=== PATIENT | male | born 1955 | race Caucasian/White ===

== ENCOUNTER 2018-10-06 13:07 | Outpatient (CLI) | payer OTHER ==
[2018-10-06 14:43] LABS: #Basophils 0.1 thou/uL (0.0-0.2); #Eosinphils 0.6 thou/uL (0.0-0.7); #Lymphocytes 1.6 thou/uL (1.20-3.40); #Monocytes 0.5 thou/uL (0.11-0.59); #Neutrophils 3.7 thou/uL (1.40-6.50); %Basophils 2.1 % (0.0-1.0); %Eosinophils 9.3 % (0.0-10.0); %Lymphocytes 24.2 % (21.0-51.0); %Monocytes 7.3 % (0.0-10.0); %Neutrophils 57.1 % (42.0-75.0); Hemoglobin 14.2 g/dL (14.0-18.0); Mean Corpuscular HGB CONC 34.3 g/dL (32.0-36.0); Mean Corpuscular Hemoglobin 31.4 pg (27.0-31.0); Mean Corpuscular Volume 91.6 fL (78.0-98.0); Mean Platelet Volume 8.5 fL (7.4-10.4); Platelet Count 252 thou/uL (130-400); RBC Distribution Width 11.8 % (11.5-14.5); Red Blood Cell (RBC) Count 4.52 mill/uL (4.70-6.10); White Blood Cell (WBC) Count 6.4 thou/uL (4.8-10.8)
[2018-10-06 14:46] LABS: Bacteria/HPF None Seen HPF (None Seen); Bilirubin Negative (Negative); Blood, Urine Negative (Negative); Clarity Clear (Clear); Glucose, Urine (Dipstick) Normal (Negative); Leukocyte Negative Leu/uL (Negative); Nitrite Negative (Negative); Protein, Urine (Dipstick) Negative (Neg-Trace); RBC/HPF 0-3 HPF (0-3); Squamous Epithelial None Seen HPF (0-3); Urobilinogen Normal mg/dL (Less than 2); WBC/HPF 0-3 HPF (0-3)
[2018-10-06 14:51] LABS: Prothrombin Time 12.7 SEC (12.0-14.7)
[2018-10-06 15:07] LABS: Anion Gap 13 mmol/L (10-20); BUN (Urea Nitrogen) 18 mg/dL (8.4-25.7); Calc. Creatinine Clearance 0 mL/min (70-130); Calcium 9.6 mg/dL (7.8-10.44); Carbon Dioxide 25 mmol/L (23-31); Chloride 104 mmol/L (98-107); Estimated GFR-MDRD 69; Glucose 86 mg/dL (80-115); Potassium 4.5 mmol/L (3.5-5.1); Sodium 137 mmol/L (136-145)
== END 2018-10-06 13:08 | disposition home or self-care (01) ==
LOC: LABBT 13:07
PROVIDERS: ATTEND Orthopaedic Surgery
DX: Z01.818 Encounter for other preprocedural examination (principal); M16.11 Unilateral primary osteoarthritis, right hip
CPT/HCPCS: 80048; 81001; 85025; 85610; 87081; 93005; 93010

== ENCOUNTER 2018-10-06 13:15 | Inpatient (IN) | payer OTHER ==
[2018-10-06 13:22] VITALS: BMI 34.9
[2018-10-18] MEDS ORDERED: Sodium Chloride 0.9% 100 ML ONE (09:37)
[2018-10-18] MEDS ORDERED: Tranexamic Acid 1,000 MG/10 ML VIAL ONE (09:37)
[2018-10-18] MEDS ORDERED: Vancomycin HCl 1.5 GM in Sodium Chloride 0.9% 250 ML 300 ML IVPB SCH (10:00)
[2018-10-18] MEDS ORDERED: HYDROcodone/Acetaminophen 10/325 mg Tablet PO PRN (10:34)
[2018-10-18] MEDS ORDERED: Ondansetron PF 4 MG/2 ML Vial IVP PRN ×2 (10:34→11:45)
[2018-10-18] MEDS ORDERED: diphenhydrAMINE 25 MG CAP PO PRN (10:34)
[2018-10-18] MEDS ORDERED: Acetaminophen 325 MG TAB PO PRN (10:34)
[2018-10-18] MEDS ORDERED: Zolpidem Tartrate 5 MG TAB PO PRN ×2 (10:34→11:45)
[2018-10-18] MEDS ORDERED: Promethazine HCl 25 MG/ML VIAL IM PRN ×2 (10:34→11:45)
[2018-10-18] MEDS ORDERED: Fentanyl 100 MCG/2 ML VIAL ONE ×3 (10:46→15:28)
[2018-10-18] MEDS ORDERED: Midazolam HCl 2 mg/2 ml Vial ONE (10:46)
[2018-10-18] MEDS ORDERED: Acetaminophen 500 MG TAB PO PRN (11:38)
[2018-10-18] MEDS ORDERED: diphenhydrAMINE 50 MG/ML VIAL IVP PRN (11:45)
[2018-10-18] MEDS ORDERED: Naloxone HCl 0.4 mg/ml Vial IVP PRN (11:45)
[2018-10-18] MEDS ORDERED: Naloxone HCl 0.4 mg/ml Vial IV PRN (11:45)
[2018-10-18] MEDS ORDERED: diphenhydrAMINE 50 MG/ML VIAL IM PRN (11:45)
[2018-10-18] MEDS ORDERED: Bupivacaine 0.25% 10 ML VIAL EPIDURAL PRN (11:45)
[2018-10-18] MEDS ORDERED: Hydrocerin (Eucerin) Cream 120 gm Jar TOP PRN (11:45)
[2018-10-18] MEDS ORDERED: HYDROcodone/Acetaminophen 5/325 mg Tablet PO PRN (11:45)
[2018-10-18] MEDS ORDERED: traMADol HCl 50 MG TAB PO PRN (11:45)
[2018-10-18] MEDS ORDERED: Promethazine HCl 25 MG SUPP PR PRN (11:45)
[2018-10-18] MEDS ORDERED: Bupivacaine HCl 0.5%/Epinephrine 1:200,000/PF 30 ml Vial ONE (13:17)
[2018-10-18] MEDS ORDERED: Ketorolac Tromethamine 30 MG/ML VIAL IVP SCH ×2 (14:00→15:55)
[2018-10-18] MEDS ORDERED: Acetaminophen 1,000 MG in Premix Bag 1 BAG IVPB SCH (15:55)
[2018-10-18] MEDS ORDERED: Ketorolac Tromethamine 30 MG/ML VIAL ONE (15:55)
--- NOTE | 2018-10-18 16:38 | RAD ---
Radiograph right hip 2 views: DATE: 10/18/2018 HISTORY: 62-year-old male with right hip pain. COMPARISON: None FINDINGS: Metallic acetabular cup articulates with metallic femoral head prosthesis with stem that reaches prox imal diaphysis of femur. IMPRESSION: Status post total right hip joint replacement arthroplasty.
[2018-10-18] MEDS ORDERED: CEFAZOLIN 2 GM in Premix Bag 1 BAG IVPB SCH (17:00)
[2018-10-18] MEDS: HYDROcodone/Acetaminophen 10/325 mg Tablet PO PRN ×2 (17:14→20:57)
[2018-10-18] MEDS: Sodium Chloride 0.9% 1,000 ML IV SCH (17:19)
[2018-10-18] MEDS ORDERED: Ondansetron PF 4 MG/2 ML Vial ONE (17:37)
[2018-10-18] MEDS ORDERED: Glycopyrrolate 0.2 MG/ML 5 ML SYRINGE ONE (17:37)
[2018-10-18] MEDS ORDERED: Dexamethasone 20 MG/5 ML VIAL ONE (17:37)
[2018-10-18] MEDS ORDERED: PROPOFOL 200 MG/20 ML VIAL ONE (17:37)
[2018-10-18] MEDS ORDERED: Rocuronium Bromide 10 MG/ML (10ML VIAL) ONE (17:37)
[2018-10-18] MEDS ORDERED: Lidocaine 1% PF 5 ML VIAL ONE (17:37)
[2018-10-18] MEDS ORDERED: ePHEDrine 50 MG/ML VIAL ONE (17:37)
[2018-10-18] MEDS: traMADol HCl 50 MG TAB PO PRN (18:35)
[2018-10-18] MEDS ORDERED: Nystatin Powder 15 GM BOT TOP PRN (19:47)
[2018-10-18] MEDS ORDERED: Polyethylene Glycol 3350 17 GM Packet PO PRN (19:47)
--- NOTE | 2018-10-18 19:49 | PDOC.HOSPP ---
- Subjective Encounter Date: 10/18/18 Encounter Time: 19:48 Subjective: Patient seen and examined for med mngt. Pain controlled. No CP/SOB or palpitations. No new complaints. - Objective Vital Signs & Weight: Vital Signs (12 hours) Temp Pulse Resp BP Pulse Ox 10/18/18 19:33 98.0 F 61 16 132/80 99 10/18/18 16:50 97.5 F L 49 L 18 139/83 100 Weight Weight 237 lb I&O: 10/17/18 10/18/18 10/19/18 06:59 06:59 06:59 Intake Total 1260 Output Total 450 Balance 810 Additional Labs: Laboratory Tests 10/06/18 10/06/18 13:54 13:54 Hgb 14.2 Sodium 137 BUN 18 Creatinine 1.08 Estimated GFR (MDRD) 69 EKG Reviewed by me: Yes (SB) Hospitalist ROS - Review of Systems Cardiovascular: denies: chest pain, palpitations, orthopnea, paroxysmal noc. dyspnea, edema, light headedness, other Gastrointestinal: denies: nausea, vomitting, abdominal pain, diarrhea, constipation, melena, hematochezia, other - Medication Medications: Active Medications Generic Name Dose Route Start Last Admin Trade Name Freq PRN Reason Stop Dose Admin Hydrocodone Bitart/Acetaminophen 2 tab 10/18/18 10:34 10/18/18 17:14 Nixa 10/325 PO 2 tab Q4H PRN Administration Severe Pain (7-10) Sodium Chloride 1,000 mls @ 100 mls/hr 10/18/18 10:45 10/18/18 17:19 Normal Saline 0.9% IV 1,000 mls .Q10H WILIAN Administration Tramadol HCl 100 mg 10/18/18 11:45 10/18/18 18:35 Ultram PO 100 mg Q6H PRN Administration Moderate Pain 4-6 - Exam General Appearance: NAD Heart: RRR, no rubs Respiratory: CTAB, no rales Gastrointestinal: soft, non-tender, normal bowel sounds Extremities: no edema Neurological: no focal deficits Psychiatric: A&O x 3 Hosp A/P (1) HTN (hypertension) Code(s): I10 - ESSENTIAL (PRIMARY) HYPERTENSION Status: Chronic (2) BPH (benign prostatic hyperplasia) Code(s): N40.0 - BENIGN PROSTATIC HYPERPLASIA WITHOUT LOWER URINRY TRACT SYMP Status: Chronic (3) Obesity (BMI 30-39.9) Code(s): E66.9 - OBESITY, UNSPECIFIED Status: Chronic (4) CKD (chronic kidney disease) stage 2, GFR 60-89 ml/min Code(s): N18.2 - CHRONIC KIDNEY DISEASE, STAGE 2 (MILD) Status: Chronic (5) YUVAL (obstructive sleep apnea) Code(s): G47.33 - OBSTRUCTIVE SLEEP APNEA (ADULT) (PEDIATRIC) Status: Chronic - Plan PT/OT Cont to monitor Add PRN HTN meds Cont Terazosin Cont Home CPAP Resume Topamax after seen by PCP as outpt Cont other meds as above
[2018-10-18] MEDS ORDERED: hydrALAZINE 20 MG/ML VIAL SLOW IVP PRN (19:52)
[2018-10-18] MEDS: Ferrous Gluconate 324 MG TAB PO SCH (20:57)
[2018-10-18] MEDS: Aspirin 81 mg Enteric Coated Tablet PO SCH (20:57)
[2018-10-18] MEDS: CEFAZOLIN 2 GM in Premix Bag 1 BAG IVPB SCH (20:58)
[2018-10-18] MEDS: Terazosin HCl 5 MG CAP PO SCH (22:00)
[2018-10-19] MEDS: Ketorolac Tromethamine 30 MG/ML VIAL IVP SCH ×4 (00:30→23:55)
[2018-10-19] MEDS: traMADol HCl 50 MG TAB PO PRN (00:33)
[2018-10-19] MEDS: Sodium Chloride 0.9% 1,000 ML IV SCH ×3 (00:38→16:52)
[2018-10-19] MEDS: CEFAZOLIN 2 GM in Premix Bag 1 BAG IVPB SCH (04:53)
[2018-10-19 05:26] LABS: Hemoglobin 10.8 g/dL (14.0-18.0); Mean Corpuscular HGB CONC 35.7 g/dL (32.0-36.0); Mean Corpuscular Hemoglobin 32.9 pg (27.0-31.0); Mean Corpuscular Volume 92.3 fL (78.0-98.0); Mean Platelet Volume 8.7 fL (7.4-10.4); Platelet Count 214 thou/uL (130-400); RBC Distribution Width 11.5 % (11.5-14.5); Red Blood Cell (RBC) Count 3.27 mill/uL (4.70-6.10); White Blood Cell (WBC) Count 8.2 thou/uL (4.8-10.8)
[2018-10-19] MEDS: Fentanyl 5 mcg/Bup 0.075% Cadd 100 ML EPIDURAL SCH ×2 (06:36→23:06)
[2018-10-19] MEDS: Aspirin 81 mg Enteric Coated Tablet PO SCH ×2 (08:02→20:27)
[2018-10-19] MEDS: Senokot S 8.6-50 MG TAB PO SCH ×2 (08:02→20:31)
[2018-10-19] MEDS: Ferrous Gluconate 324 MG TAB PO SCH ×2 (08:02→20:27)
[2018-10-19] MEDS: Multivitamin W/ Minerals 1 TAB PO SCH (08:02)
[2018-10-19] MEDS: HYDROcodone/Acetaminophen 5/325 mg Tablet PO PRN ×3 (08:04→20:28)
--- NOTE | 2018-10-19 08:28 | OP ---
DATE OF PROCEDURE: 10/18/2018 PREOPERATIVE DIAGNOSES: Degenerative joint disease of right hip and intramuscular lipoma of right thigh. PROCEDURES PERFORMED: Right total hip arthroplasty and through a separate incision, removal of intramuscular lipoma 7 cm. HOOK PULLER: David Bergeron PA-C BLOOD LOSS: 300. SPECIMEN: None. DRAINS: None. COMPLICATIONS: None. IMPLANTS USED: Lyndsay Accolade II, size 3 stem with a +2.5 ceramic head and a 54 mm Tritanium cup. PROCEDURE IN DETAIL: After informed consent was obtained in the preoperative holding area, the patient was taken to the operative suite where general anesthesia was induced. The patient was then positioned in the lateral decubitus position. The hip was then prepped and draped in usual sterile fashion. The patient received preoperative antibiotics. Prior to incision, time-out was called and all members of the surgical team agreed upon site, surgeon, and patient. After this, a longitudinal incision was made directly over the trochanter, noted by palpation extending 2 fingerbreadths above and below the trochanter. The deeper subcutaneous layer was undermined with Bovie electrocautery. The iliotibial band was encountered and incised sharply and the plane below this was developed bluntly. A Charnley retractor was placed to hold this opened. The lateral aspect of the trochanter and the abductor muscles were encountered and then reflected anteriorly off the trochanter using Bovie electrocautery. Once this was completed, the anterior capsule was then encountered and identified and copious capsulotomy was carried out, exposing the femoral neck and head. Dislocation maneuver was then performed and an in situ provisional neck cut was then made using the oscillating saw. Attention was then turned to acetabular preparation and sequential reaming was carried out up to the appropriate diameter. A trial was then malleted into place with good firm resistance and no pullout. The permanent acetabular shell was then malleted squarely into place, as was the appropriate liner. Once completed, the wound was copiously irrigated and attention was then turned to femoral preparation. Flexion and external rotation were performed of the exposed thigh and femoral elevators were then placed at the proximal aspect of the wound. Canal finder was used to establish the length of the canal and sequential reaming was carried out, followed by broaching. Once the appropriate stability was established with the trial broaches with flexion, extension and rotational stability, we did trial with neutral and 2 mm offset incremental necks. Once the appropriate size was decided upon, with good stability noted with flexion, extension, internal and external rotation and shuck being negative, we removed the femoral trial broach and malleted into place the permanent prosthesis with good firm fit, which was also stable to rotation. Again, the hip felt very stable to flexion, extension, internal and external rotation. Leg lengths appeared near anatomic clinically and we were quite happy with prosthesis placement. Copious irrigation was then carried out through the entirety of the wound. Primary closure of the abductors was accomplished with interrupted #2 Vicryl [id number] stitches and the IT band was then closed with interrupted #2 Vicryl, oversewn with a #2 running barbed Quill stitch. Subcutaneous fascia was closed with running barbed Quill stitch and a subcuticular Monocryl barbed Quill stitch was used for skin closure and augmented with skin cement. A sterile dressing was applied. The procedure was terminated without any complication. All counts were correct. The patient was awakened in the operative suite and taken to the recovery room in stable condition. Through a separate incision, then made an anterior approach directly over the lipoma. The fascia was divided and muscles entered and enucleated 7 cm lipoma and obtained hemostasis in the deep aspect of the wound as needed. Irrigation was performed. The lipoma was sent for permanent specimen. Subcutaneous tissue was closed with 2-0 Vicryl, skin was closed with V-Loc. There were no complications. Job ID: [id number]
[2018-10-19] MEDS ORDERED: Terazosin HCl 5 MG CAP PO SCH (09:00)
[2018-10-19] MEDS: diphenhydrAMINE 25 MG CAP PO PRN ×3 (12:33→23:55)
[2018-10-19] MEDS: Terazosin HCl 5 MG CAP PO SCH (20:35)
[2018-10-20] MEDS: Sodium Chloride 0.9% 1,000 ML IV SCH ×2 (02:44→14:53)
[2018-10-20 05:03] LABS: Hemoglobin 10.8 g/dL (14.0-18.0); Mean Corpuscular Hemoglobin 33.2 pg (27.0-31.0); Mean Corpuscular Volume 92.3 fL (78.0-98.0); Mean Platelet Volume 8.9 fL (7.4-10.4); Platelet Count 191 thou/uL (130-400); RBC Distribution Width 11.8 % (11.5-14.5); Red Blood Cell (RBC) Count 3.25 mill/uL (4.70-6.10); White Blood Cell (WBC) Count 7.4 thou/uL (4.8-10.8)
[2018-10-20] MEDS: HYDROcodone/Acetaminophen 5/325 mg Tablet PO PRN (06:51)
[2018-10-20] MEDS: Senokot S 8.6-50 MG TAB PO SCH (09:05)
[2018-10-20] MEDS: Multivitamin W/ Minerals 1 TAB PO SCH (09:05)
[2018-10-20] MEDS: Ketorolac Tromethamine 30 MG/ML VIAL IVP SCH (09:05)
[2018-10-20] MEDS: Aspirin 81 mg Enteric Coated Tablet PO SCH (09:06)
[2018-10-20] MEDS: Ferrous Gluconate 324 MG TAB PO SCH (09:06)
[2018-10-20] MEDS ORDERED: HYDROcodone/Acetaminophen 10/325 mg Tablet PO PRN ×2 (09:55)
[2018-10-20 11:48] VITALS: BP 153/81; TEMP 98.1
== END 2018-10-20 15:19 | disposition home or self-care (01) | DRG 470 ==
LOC: SURG A 10-18 09:20 → SJJU 10-18 16:30
PROVIDERS: ADMIT Orthopaedic Surgery; ATTEND Orthopaedic Surgery
PROC: 0SR9039 Replacement of Right Hip Joint with Ceramic Synthetic Substitute, Cemented, Open Approach (ICD-10-PCS; principal; 2018-10-18)
DX: M16.11 Unilateral primary osteoarthritis, right hip (principal); D17.23 Benign lipomatous neoplasm of skin and subcutaneous tissue of right leg; N40.0 Benign prostatic hyperplasia without lower urinary tract symptoms; E66.9 Obesity, unspecified; I12.9 Hypertensive chronic kidney disease with stage 1 through stage 4 chronic kidney disease, or unspecified chronic kidney disease; N18.2 Chronic kidney disease, stage 2 (mild); G47.33 Obstructive sleep apnea (adult) (pediatric); G47.8 Other sleep disorders; Z68.35 Body mass index [BMI] 35.0-35.9, adult; Z90.49 Acquired absence of other specified parts of digestive tract; Z98.1 Arthrodesis status
CPT/HCPCS: 36415; 85027; 88304; J0131; J0670; J0690; J1100; J1885; J2001; J2250; J2405; J2704; J3010; J3370; J3490; J7050; Q0163

== ENCOUNTER 2023-03-18 11:36 | Outpatient (CLI) | payer MEDICARE, OTHER ==
[2023-03-18 13:09] LABS: #Basophils 0.1 10x3/uL (0.0-0.2); #Eosinphils 0.3 10x3/uL (0.0-0.5); #Monocytes 0.4 10x3/uL (0.0-1.1); #Neutrophils 2.7 10x3/uL (1.5-8.4); %Basophils 1.6 % (0.0-2.0); %Eosinophils 5.2 % (0.0-6.0); %Lymphocytes 30.4 % (18.0-47.0); %Monocytes 7.8 % (0.0-10.0); %Neutrophils 54.4 % (40.0-75.0); Hematocrit 40.9 % (38.8-50.0); Hemoglobin 14.8 g/dL (13.5-17.5); Mean Corpuscular HGB CONC 36.2 g/dL (32.0-36.0); Mean Corpuscular Hemoglobin 32.3 pg (27.0-33.0); Mean Corpuscular Volume 89.3 fl (81.2-95.1); Mean Platelet Volume 11.2 fl (7.4-10.4); Platelet Count 219 10x3/uL (150-450); RBC Distribution Width 12.2 % (11.5-14.5); Red Blood Cell (RBC) Count 4.58 10x6/uL (4.32-5.72)
[2023-03-18 13:18] LABS: Prothrombin Time 10.3 sec (9.5-12.1)
[2023-03-18 13:21] LABS: Anion Gap 15 mmol/L (10-20); BUN (Urea Nitrogen) 16 mg/dL (8.4-25.7); Calc. Creatinine Clearance 0 mL/min (70-130); Calcium 9.3 mg/dL (7.8-10.44); Carbon Dioxide 22 mmol/L (23-31); Chloride 104 mmol/L (98-107); Estimated GFR 72; Glucose 97 mg/dL (80-115); Potassium 4.5 mmol/L (3.5-5.1); Sodium 136 mmol/L (136-145)
== END 2023-03-18 11:37 | disposition home or self-care (01) ==
LOC: LABBT 11:36
PROVIDERS: ATTEND Orthopaedic Surgery
DX: Z01.818 Encounter for other preprocedural examination (principal); M16.12 Unilateral primary osteoarthritis, left hip
CPT/HCPCS: 80048; 85025; 85610; 87081; 93005; 93010